=== PATIENT | male | born 1960 | race Caucasian/White ===

== ENCOUNTER 2020-10-05 09:24 | Emergency (ER) | payer BC ==
[~2020-10-05] VITALS: Ht 177.8 cm; Wt 109.0 kg
[2020-10-05] MEDS ORDERED: MEDDOSEPAK PO (12:34)
[2020-10-05] MEDS ORDERED: HYDROCO/APAP1 TA9 PO (12:34)
[2020-10-05 13:01] VITALS: BP 136/76
== END 2020-10-05 13:16 | disposition home or self-care (01) | DRG 552 ==
LOC: ED 09:24
DX: M54.41 Lumbago with sciatica, right side (principal)